=== PATIENT | female | born 1965 | race Caucasian/White ===

== ENCOUNTER 2016-11-07 11:18 | Emergency (ER) | payer BC, MEDICAID ==
[2016-11-07 11:28] VITALS: BP 135/89
[2016-11-07] MEDS ORDERED: Lidocaine 1% with EPINEPHrine 1:100,000 20 ML MDV INJECT ONE (12:32)
[2016-11-07] MEDS ORDERED: Lidocaine/EPINEPHrine/Tetracaine Soln 1 ML TOP ONE (12:32)
--- NOTE | 2016-11-07 12:36 | EDM.PDOC ---
ED HPI Skin/Rash - General Chief Complaint: Laceration Stated Complaint: FACE LACERATION- KICKED BY CALF Time Seen by Provider: 11/07/16 12:10 Source: Reports: Patient History Limitations: Reports: No limitations - History of Present Illness INITIAL COMMENTS - FREE TEXT/NARRATIVE: Patient is a 51 y/o female who presents to the E.D. complaining of laceration to the right side of upper lip. Patient states while casterating a calf she was accidentally kicked in the face by the calf. States she was not knocked out. Bleeding was controlled with direct pressure. Denies loose teeth, pain to jaw, n /v, neck pain, or any additional complaints. Tetanus is up to date. - Related Data Allergies Allergy/AdvReac Type Severity Reaction Status Date / Time No Known Allergies Allergy Verified 11/07/16 11:28 Home Meds: Ambulatory Orders Medication Instructions Recorded Confirmed FLUoxetine HCl [Fluoxetine HCl] 2 tab PO DAILY 06/08/16 11/07/16 valACYclovir HCl [Valacyclovir] 1 tab PO Q12H PRN 06/08/16 11/07/16 Doxycycline [Vibramycin] 100 mg PO Q12HR #10 tablet 11/07/16 Past Medical History HEENT History: Reports: Allergic rhinitis Gastrointestinal History: Reports: Chronic constipation MANAGER DIGITAL History: Reports: Other OB/BYN History: cervical cryosurgery Other Musculoskeletal History: R achilles tendon repair Psychiatric History: Reports: Depression, Other (see below) Other Psychiatric History: depression, fatigue Dermatologic History: Reports: Other (see below) Other Dermatologic History: cold sores, skin lesions - Past Surgical History HEENT Surgical History: Reports: Oral surgery Musculoskeletal Surgical History: Reports: Arthroscopic knee Social & Family History - Tobacco Use Smoking Status *Q: Never Smoker - Recreational Drug Use Recreational Drug Use: No Drug Use in Last 12 Months: No ED ROS GENERAL - Review of Systems Review Of Systems: ROS reveals no pertinent complaints other than HPI. ED EXAM, SKIN/RASH Exam: See Below Exam Limited By: No limitations General Appearance: alert, WD/WN, no apparent distress Eye Exam: bilateral eye: EOMI, PERRL Ears: hearing grossly normal Nose: normal inspection, normal mucosa, no blood Throat/Mouth: Normal oropharynx, Normal voice, No airway compromise. No: Normal lips (deep laceration to the right side of upper lip) Head: atraumatic, normocephalic Neck: normal inspection, supple, non-tender, full range of motion Respiratory/Chest: no respiratory distress, lungs clear, normal breath sounds, no accessory muscle use Cardiovascular: normal peripheral pulses, regular rate, rhythm Neurological: alert, oriented, CN II-XII intact, normal cognition, normal gait, no motor/sensory deficits Psychiatric: normal affect, normal mood Skin: Warm, Dry, Normal color, No rash ED SKIN PROCEDURES - Laceration/Wound Repair Upper Other Lac/wound length in cm: 2.5 Appearance: subcutaneous, clean Distal NVT: neuro & vascular intact Anesthetic type: topical (LET Topical and local) Local anesthesia - Lidocaine (Xylocaine): 1% with epi Local anesthetic volume: 3cc Skin prep: chlorhexidine (hibiciens), saline, sterile drape Exploration/Debridement/Repair: wound explored, in a bloodless field, explored to base, no foreign material found, wound margins revised, multiple flaps aligned Closed with: sutures Suture size: other (6) # of sutures: 9 Suture type: prolene, interrupted, simple Suture size: other (5) # of sutures: 4 Drain placement: No Sterile dressing applied: nurse Tetanus status addressed: Yes Complications: No Course - Vital Signs Last Recorded V/S: Last Vital Signs Temp 97.9 F 11/07/16 11:26 Pulse 55 L 11/07/16 11:26 Resp 16 11/07/16 11:26 BP 135/89 11/07/16 11:26 Pulse Ox 98 11/07/16 11:26 - Orders/Labs/Meds Meds: Medications Discontinued Medications Generic Name Dose Route Start Last Admin Trade Name Santiago PRN Reason Stop Dose Admin Ibuprofen 600 mg 11/07/16 13:44 11/07/16 13:54 Motrin PO 11/07/16 13:45 600 mg ONETIME ONE Administration Lidocaine/Epinephrine 20 ml 11/07/16 12:32 11/07/16 12:43 Xylocaine 1% With Epinephrine 1:100,000 INJECT 11/07/16 12:33 20 ml ONETIME ONE Administration Lidocaine/Tetracaine 1 ml 11/07/16 12:32 11/07/16 12:42 Let Soln TOP 11/07/16 12:33 1 ml ONETIME ONE Administration - Re-Assessments/Exams Free Text/Narrative Re-Assessment/Exam: 11/07/16 12:34 Ordered LET topical solution and 1% Lido with epi. 11/07/16 14:4 Laceration closed with no complications. Will discharge patient with instructions and prescription for doxycline 100mg bid x 5 days. Departure - Departure Time of Disposition: 14:50 Disposition: Home, Self-Care 01 Condition: good Clinical Impression: Laceration of lip Qualifiers: Encounter type: initial encounter Qualified Code(s): S01.511A - Laceration without foreign body of lip, initial encounter Prescriptions: Doxycycline [Vibramycin] 100 mg PO Q12HR #10 tablet Instructions: Laceration Care, Adult, [id number] Referrals: Shelli Escalante PRODUCTION TECHNICIAN [Primary Care Provider] - Forms: ED Department Discharge Additional Instructions: Take the doxycycline as instructed for 5 days. Cleanse site twice daily with soap and water, pat dry, reapply bacitracin ointment, and dressing. Keep area clean and dry. Can apply ice as needed for swelling. Refrain from contact with skin. See a provider at the walk in clinic to remove sutures in 5 days. Return to the E.D. for increased redness, swelling, purulent drainage, or pain. When sutures are out suggest keeping covered or utilization of sunscreen and mederma.
[2016-11-07] MEDS ORDERED: Ibuprofen 600 MG Tab PO ONE (13:44)
== END 2016-11-07 15:00 | disposition home or self-care (01) ==
LOC: JD.ED 11:18
DX: S01.511A Laceration without foreign body of lip, initial encounter (principal); F32.9 Major depressive disorder, single episode, unspecified; Z98.890 Other specified postprocedural states; Z79.899 Other long term (current) drug therapy; W55.22XA Struck by cow, initial encounter
CPT/HCPCS: 12011; 99283; A9270

== ENCOUNTER 2022-10-13 07:03 | Day surgery (SDC) | payer BC ==
[~2022-10-13 07:03] MED LIST: Lactated Ringers 1,000 ML IV SCH; Lidocaine 1%/Sod Bicarbonate in NS 8.4% 1 ML Syringe IDERM PRN; Sodium Chloride 0.9% 10 ML Syringe FLUSH PRN; Sodium Chloride 0.9% 10 ML Syringe FLUSH SCH
[2022-10-13] MEDS ORDERED: fentaNYL 100 MCG/2 ML SDV ONE (07:13)
[2022-10-13] MEDS ORDERED: Propofol 200 MG/20 ML SDV ONE (07:13)
[2022-10-13] MEDS ORDERED: Lidocaine 1% 8 ML ONE (07:13)
[2022-10-13 09:57] VITALS: BP 100/55; PULSE 56
== END 2022-10-13 09:42 | disposition home or self-care (01) ==
LOC: JD.SDS 07:03
PROVIDERS: ATTEND Specialist
DX: Z12.11 Encounter for screening for malignant neoplasm of colon (principal); K63.5 Polyp of colon; F32.A Depression, unspecified; Z88.8 Allergy status to other drugs, medicaments and biological substances; Z79.899 Other long term (current) drug therapy
CPT/HCPCS: 45385; J2704; J3010; J7120; 00812; J3490